=== PATIENT | female | born 1950 | race Hispanic/Latino ===

== ENCOUNTER 2017-05-04 07:05 | Day surgery (SDC) | payer MEDICARE ==
[2017-05-04 08:10] VITALS: BMI 29.6
[2017-05-04] MEDS ORDERED: Propofol 10 mg/ml Inj (20 ML) ONE (09:12)
[2017-05-04] MEDS ORDERED: Lidocaine Hydrochloride 5 ML INJ ONE (09:12)
[2017-05-04] MEDS ORDERED: Lactated Ringer's 500 ML IV ONE (09:14)
[2017-05-04] MEDS ORDERED: Pantoprazole 40 mg EC Tab PO ONE (09:15)
--- NOTE | 2017-05-04 09:15 | CP.SDSHP ---
Same Day Surgery H & P - History Proposed Procedure: egd Pre-Op Diagnosis: fecal occult blood loss. epigastric pain. heartburn - Previous Medical/Surgical History Cardiac: Hypertension (hyperlipidemia, ) Pulmonary: Asthma Endocrine/Metabolic: Diabetes, Obesity Neuro: Other (Multiple Sclerosis, DJD with radiculopathy, ) Misc: Other (Ovarian cysts) Previous Surgical History: appendectomy. Laparoscopy for cysts. D and C - Allergies Allergies: Allergies Penicillins Allergy (Intermediate, Verified 05/04/17 08:09) RASH TIGHTNESS IN THE CHEST. - Physical Exam Vital Signs: Vital Signs 05/04/17 08:16 Temperature 97.7 F Pulse Rate 79 Respiratory 19 Rate Blood Pressure 135/69 O2 Sat by Pulse 98 Oximetry Mental Status: Alert & Oriented x3 Neuro: WNL Heart: WNL Lungs: WNL GI: WNL - Impression Impression: fecal occult blood loss. epigastric pain. heartburn Pt. Evaluated Today:Candidate for Anesthesia & Procedure: Yes - Date & Time Date: 05/04/17 Time: 09:15 Short Stay Discharge - Short Stay Discharge Admitting Diagnosis/Reason for Visit: EPIGASTRIC PAIN, HEARTBURN Disposition: HOME/ ROUTINE
[2017-05-04 10:52] VITALS: TEMP 97.1; O2SAT 97
[2017-05-04 10:53] VITALS: PULSE 65
[2017-05-04 10:56] VITALS: BP 103/57; RESP 13
== END 2017-05-04 10:20 | disposition home or self-care (01) ==
LOC: C.ENDO 07:05
PROVIDERS: ATTEND Internal Medicine Gastroenterology
DX: K21.0 Gastro-esophageal reflux disease with esophagitis (principal); K29.70 Gastritis, unspecified, without bleeding; K44.9 Diaphragmatic hernia without obstruction or gangrene; R19.5 Other fecal abnormalities
CPT/HCPCS: 43239; 82948; 88305; J2704; J7120